=== PATIENT | male | born 1995 | race Caucasian/White ===

== ENCOUNTER 2020-08-07 09:43 | Observation (INO) ==
[2020-08-07] MEDS ORDERED: AMMONIA INHALANT 1 EACH AMP INH ONE (09:45)
[2020-08-07] MEDS ORDERED: NALOXONE 0.4 MG/ML VIAL ONE (09:50)
[2020-08-07] MEDS ORDERED: NALOXONE 0.4 MG/ML VIAL IV PRN (09:52)
[2020-08-07 10:16] LABS: Basophils # 0.1 10*3/uL (0.0-0.2); Basophils % 0.5 % (0.0-0.8); Eosinophils # 0.1 10*3/uL (0.0-0.87); Eosinophils % 0.4 % (0.00-10.9); Hematocrit 41.2 VOL% (42.0-52.0); Hemoglobin 14.5 GM/DL (14.0-18.0); Immature Granulocytes % 0.4 %; Immature Granulocytes Absolute 0.07 #; Lymphocytes # 2.3 10*3/uL (1.4-4.0); Lymphocytes % 13.2 % (21.2-54.2); Mean Corpuscular HGB Conc 35.2 GM/DL (32-36); Mean Corpuscular Volume 89.8 FL (87-102); Mean Platelet Volume 12.9 FL (9.6-12.0); Monocytes % 9.6 % (1.7-12.7); Neutrophils % 75.9 % (38.7-73.9); Platelet Count 189 T/CUMM (130-400); Red Blood Count 4.59 MC/CUMM (3.8-5.5); White Blood Count 17.1 T/CUMM (4-12)
[2020-08-07 10:37] LABS: Albumin 4.2 G/DL (3.4-5.0); Bilirubin,Total 1.2 MG/DL (0.2-1.0); Calcium 9.3 MG/DL (8.5-10.1); Osmolality,Calculated 269.4 MOS/KG (273-304); Potassium 2.9 MMOL/L (3.5-5.1); Total Protein 7.7 G/DL (6.4-8.2)
[2020-08-07 10:50] LABS: Barbiturates Screen,Urine Negative (Negative); Benzodiazepines Screen,Urine Negative (Negative); Cannabinoid Screen,Urine Positive (Negative); Opiate Screen,Urine Negative (Negative); Phencyclidine Screen,Urine Negative (Negative)
[2020-08-07] MEDS ORDERED: DEXTROSE 50% 25 GM/50 ML VIAL IV PRN (13:00)
[2020-08-07] MEDS ORDERED: DOCUSATE SODIUM 100 MG CAPSULE PO PRN (13:00)
[2020-08-07] MEDS ORDERED: GLUCAGON 1 MG VIAL IM PRN (13:00)
[2020-08-07] MEDS ORDERED: ONDANSETRON 4 MG/2 ML VIAL IV PRN (13:00)
[2020-08-07] MEDS ORDERED: hydrALAZINE 20 MG/1 ML VIAL IV PRN (13:00)
[2020-08-07] MEDS ORDERED: LORazepam 2 MG/1 ML VIAL IV PRN (13:08)
[2020-08-07] MEDS ORDERED: MAGNESIUM SULF RIDER 2 GM in PREMIX 1 EACH IV PRN (13:11)
[2020-08-07] MEDS ORDERED: MAGNESIUM SULF RIDER 4 GM in PREMIX 1 EACH IV PRN (13:11)
[2020-08-07] MEDS ORDERED: MELATONIN 3 MG TABLET PO PRN (13:12)
[2020-08-07 14:10] LABS: Salicylate < 2.8 MG/DL (2.8-20)
[2020-08-07 14:11] LABS: Acetaminophen < 2.0 UG/ML (10-30)
[2020-08-07] MEDS: SODIUM CHLORIDE 0.9% 1,000 ML IV SCH (14:58)
[2020-08-07] MEDS: ENOXAPARIN 40 MG/0.4 ML SYRINGE SUBCUT SCH (14:58)
[2020-08-07 16:25] LABS: Bacteria,Urine Many /HPF (Few); Bilirubin,Urine Negative (Negative); Blood, Urine Large mg/dL (Negative); Glucose,Urine (UA) Negative (Negative); Ketones,Urine 5 mg/dL (Negative); Mucus,Urine Occasional /LPF (Occasional); Nitrite,Urine Negative (Negative); Protein,Urine 100 MG/DL; RBC,Urine 25 /HPF (0-4); Urine Appearance Slightly Hazy (Clear); Urine Color Amber (Yellow); Urine Specific Gravity 1.024 (1.001-1.035); Urine Urobilinogen < 2.0 EU/DL (0.2-1.0); WBC,Urine 12 /HPF (0-6)
[2020-08-07] MEDS: POTASSIUM CHLORIDE RIDER 10 MEQ in PREMIX 1 EACH IV PRN ×5 (17:11→22:26)
[2020-08-08] MEDS: POTASSIUM CHLORIDE RIDER 10 MEQ in PREMIX 1 EACH IV PRN ×9 (02:11→12:04)
[2020-08-08 06:14] LABS: Basophils # 0.1 10*3/uL (0.0-0.2); Basophils % 0.7 % (0.0-0.8); Eosinophils # 0.2 10*3/uL (0.0-0.87); Eosinophils % 2.5 % (0.00-10.9); Hematocrit 38.6 VOL% (42.0-52.0); Hemoglobin 13.7 GM/DL (14.0-18.0); Immature Granulocytes % 0.6 %; Immature Granulocytes Absolute 0.05 #; Lymphocytes # 2.1 10*3/uL (1.4-4.0); Lymphocytes % 24.5 % (21.2-54.2); Mean Corpuscular HGB Conc 35.5 GM/DL (32-36); Mean Corpuscular Volume 89.6 FL (87-102); Mean Platelet Volume 12.3 FL (9.6-12.0); Monocytes % 9.5 % (1.7-12.7); Neutrophils % 62.2 % (38.7-73.9); Platelet Count 151 T/CUMM (130-400); Red Blood Count 4.31 MC/CUMM (3.8-5.5); Red Cell Distribution Width 12.3 % (9.3-17.3); White Blood Count 8.8 T/CUMM (4-12)
[2020-08-08 06:45] LABS: Albumin 3.4 G/DL (3.4-5.0); Bilirubin,Direct 0.25 MG/DL (0.0-0.20); Bilirubin,Indirect 1.5 MG/DL (0.0-1.0); Bilirubin,Total 1.7 MG/DL (0.2-1.0); Total Protein 6.3 G/DL (6.4-8.2)
[2020-08-08 06:51] LABS: Calcium 8.3 MG/DL (8.5-10.1); Potassium 3.3 MMOL/L (3.5-5.1); Thyroid Stimulating Hormone 1.11 uIU/ml (0.358-3.74)
[2020-08-08] MEDS: SODIUM CHLORIDE 0.9% 1,000 ML IV SCH (09:34)
[2020-08-08] MEDS: ENOXAPARIN 40 MG/0.4 ML SYRINGE SUBCUT SCH (14:17)
[2020-08-08 14:55] VITALS: BP 170/86
[2020-08-08 14:57] LABS: HIV Antigen/Antibody Result Nonreactive (Nonreactive)
[2020-08-08 15:04] LABS: Hepatitis B Core IgM Quant < 0.05 Index; Hepatitis B Surface Ag Quant < 0.10 Index; Hepatitis B Surface Ag Result Non-Reactive (NonReactive); Hepatitis C Virus Ab Quant 0.06 Index; Hepatitis C Virus Ab Result Non-Reactive (NonReactive)
== END 2020-08-08 15:13 | disposition home or self-care (01) ==
LOC: EDBD → EDUNIT# → N.ED 09:43 → N.EDINP 09:43 → SUATTDRO 13:00 → N.EDINP 14:06 → N.3E 14:31
PROVIDERS: ADMIT Internal Medicine; ATTEND Internal Medicine Geriatric Medicine